=== PATIENT | male | born 1960 | race Caucasian/White ===

== ENCOUNTER 2023-09-25 06:30 | Day surgery (SDC) | payer OTHER, SELFPAY ==
[2023-08-08 08:59] VITALS: BMI 22.5
[2023-08-08 09:22] LABS: % Basophils 0.5 % (0-2); % Eosinophils 2.8 % (0-6); % Immature Granulocytes 0.2 % (0-0.5); % Lymphocytes 32.2 % (20.5-51.1); % Monocytes 10.8 % (1.7-9.3); % Neutrophils 53.5 % (42.2-75.2); Absolute Eosinophils 0.1 10^3/uL (0-0.7); Absolute Lymphocytes 1.4 10^3/uL (1.2-3.4); Absolute Monocytes 0.5 10^3/uL (0.1-0.6); Absolute Neutrophils 2.3 10^3/uL (1.4-6.5); Hematocrit 40.4 % (39.0-52.0); Hemoglobin 13.7 g/dL (13.0-18.0); Mean Corp Hgb Conc. 33.9 g/dL (33.0-37.0); Mean Corpuscular Hgb 29.5 pg (27.0-31.0); Mean Corpuscular Volume 86.9 fL (80.0-94.0); Mean Platelet Volume 10.2 fL (7.4-10.4); Nucleated Red Blood Cells % 0 % (-); Platelet Count 217 10^3/uL (130-400); Red Blood Cell Count 4.65 10^6/uL (4.70-6.10); Red Cell Dist. Width 12.5 % (11.5-14.5); White Blood Cell Count 4.4 10^3/uL (4.8-10.8)
[2023-08-08 09:35] LABS: INR 1.55; PT 18.8 Sec (11.4-14.6)
[2023-08-08 09:37] LABS: ALT (SGPT) 33 U/L (0-50); AST (SGOT) 33 U/L (17-59); Albumin 4.5 g/dl (3.5-5.0); Alkaline Phosphatase 57 U/L (38-126); Blood Urea Nitrogen 18 mg/dl (9-20); Carbon Dioxide 29 mmol/L (22-30); Chloride 106 mmol/L (98-107); Estimated Creatinine Clearance 90 ml/min; Glucose 95 mg/dl (70-99); Magnesium 2.1 mg/dl (1.6-2.3); Potassium 4.6 mmol/L (3.5-5.1); Sodium 138 mmol/L (135-145); Total Protein 6.9 g/dl (6.3-8.2); eGFR > 60.00
[2023-09-22 09:54] VITALS: BMI 21.1
[2023-09-22 10:13] LABS: % Basophils 0.8 % (0-2); % Eosinophils 2.5 % (0-6); % Immature Granulocytes 0.3 % (0-0.5); % Lymphocytes 34.3 % (20.5-51.1); % Monocytes 11.7 % (1.7-9.3); % Neutrophils 50.4 % (42.2-75.2); Absolute Eosinophils 0.1 10^3/uL (0-0.7); Absolute Lymphocytes 1.4 10^3/uL (1.2-3.4); Absolute Monocytes 0.5 10^3/uL (0.1-0.6); Hemoglobin 14.1 g/dL (13.0-18.0); Mean Corp Hgb Conc. 33.6 g/dL (33.0-37.0); Mean Corpuscular Hgb 29.4 pg (27.0-31.0); Mean Corpuscular Volume 87.7 fL (80.0-94.0); Mean Platelet Volume 10.5 fL (7.4-10.4); Nucleated Red Blood Cells % 0 % (-); Platelet Count 186 10^3/uL (130-400); Red Blood Cell Count 4.79 10^6/uL (4.70-6.10); White Blood Cell Count 3.9 10^3/uL (4.8-10.8)
[2023-09-22 10:24] LABS: ALT (SGPT) 30 U/L (0-50); AST (SGOT) 36 U/L (17-59); Albumin 4.4 g/dl (3.5-5.0); Alkaline Phosphatase 56 U/L (38-126); Blood Urea Nitrogen 17 mg/dl (9-20); Calcium 9.2 mg/dl (8.4-10.2); Carbon Dioxide 31 mmol/L (22-30); Chloride 104 mmol/L (98-107); Estimated Creatinine Clearance 79 ml/min; Glucose 102 mg/dl (70-99); Sodium 138 mmol/L (135-145); Total Bilirubin 1.1 mg/dl (0.2-1.3); eGFR > 60.00
[2023-09-22 10:31] LABS: INR 1.07; PT 13.7 Sec (11.4-14.6)
[2023-09-22 10:41] LABS: Potassium 4.6 mmol/L (3.5-5.1)
[2023-09-25] VITALS (10 sets, daily range): BP systolic 98–113; BP diastolic 52–76; BMI 22.2
[2023-09-25 07:07] LABS: Hematocrit 40.5 % (39.0-52.0); Hemoglobin 13.9 g/dL (13.0-18.0); Mean Corp Hgb Conc. 34.3 g/dL (33.0-37.0); Mean Corpuscular Hgb 29.8 pg (27.0-31.0); Mean Corpuscular Volume 86.7 fL (80.0-94.0); Mean Platelet Volume 10.2 fL (7.4-10.4); Platelet Count 159 10^3/uL (130-400); Red Blood Cell Count 4.67 10^6/uL (4.70-6.10); Red Cell Dist. Width 12.9 % (11.5-14.5); White Blood Cell Count 4.1 10^3/uL (4.8-10.8)
[2023-09-25 07:24] LABS: Blood Urea Nitrogen 20 mg/dl (9-20); Carbon Dioxide 26 mmol/L (22-30); Chloride 106 mmol/L (98-107); Estimated Creatinine Clearance 101 ml/min; Glucose 103 mg/dl (70-99); Potassium 4.2 mmol/L (3.5-5.1); Sodium 137 mmol/L (135-145); eGFR > 60.00
[2023-09-25 09:26] LABS: ACT-LR - POC 279 Seconds (116-155)
[2023-09-25 09:47] LABS: ACT-LR - POC 343 Seconds (116-155)
[2023-09-25 10:10] LABS: ACT-LR - POC 340 Seconds (116-155)
[2023-09-25 10:26] LABS: ACT-LR - POC 292 Seconds (116-155)
[2023-09-25 13:19] LABS: ACT-LR - POC > 397 Seconds (116-155)
--- NOTE | 2023-09-25 14:31 | ITS.CL.ABL ---
Early Childhood Worker - Ablation
Ablation
Procedure Report:
ELECTROPHYSIOLOGIC STUDY AND POSSIBLE ABLATION
DATE: September 25, 2023
Primary Care Provider: Dr. Leticia Lebron
INDICATION:
Symptomatic Atrial Fibrillation.
Paroxysmal
HISTORY: See H and P.
Symptomatic AF, poorly controlled with attempted medical therapy
He has a complex past medical history which mitral valve repair with a #36 annuloplasty ring on August 20, 2012 for severe mitral regurgitation and left ventricular dysfunction.
Course was complicated by recurrent atrial tachyarrhythmias. He was discharged to home on amiodarone and oral anticoagulation. He demonstrated symptomatic recurrent persistent atrial flutter for which he underwent EP study and ablation of typical
right atrial flutter on November 30, 2012. Amiodarone was discontinued and he had done well for many years from an arrhythmia standpoint. Regarding his post mitral valve repair mitral regurgitation, postoperative echocardiograms have demonstrated mitral
valve prolapse with moderate to severe mitral regurgitation. He subsequently had a consultative visit with Dr. Jacobo at the [facility] December 30, 2013 and it was felt that given the lack of patient's symptoms and sinus rhythm with a
normalized left ventricular function that the best course would be observational follow-up with consideration for re-op only if symptoms develop or heart failure develops. Most recently, required elective electrical cardioversion July 31, 2023 for
symptomatic AF.���Since that time, he has noted several recurrences of paroxysmal atrial fibrillation both symptomatically and on his wearable device, watch.
HAS-BLED: 0
CHADSVASc: 0
Through informed decision making process in the office is decided to stay on direct oral anticoagulant at least for now.
PRESENTING RHYTHM:SR
HISTORY: See H and P.
Symptomatic AF, poorly controlled with attempted medical therapy.
ANTICOAGULATION: Xarelto
'TIME-OUT': called and confirmed.
SEDATION/ANESTHESIA: provided via the anesthesia department using general anesthesia.
PROCEDURE:
Ultrasound Guidance performed by ct was utilized for femoral venous Vascular Access b/l.
A decapolar CS catheter was placed within the CS for mapping and pacing.
The intracardiac ultrasound catheter was positioned in the RA for continuous intracardiac ultrasound imaging.
Heparin bolus and infusion to target ACT at 300 -350 seconds was administered. Transseptal puncture was performed. This entailed advancing a sheath with dilator into the superior vena cava and withdrawing both (monitoring intracardiac ultrasound,
fluoroscopy and tip pressure) with the tip oriented toward the atrial septum. The fossa ovalis was engaged (indicated by sudden displacement of the sheath tip as well as tenting of the fossa seen on intracardiac ultrasound). Left atrial access
required a pass with the Brockenbrough needle extended. Left atrial catheter position was confirmed by pressure monitoring as well as fluoroscopy. The sheath was advanced over the dilator and positioned in the left atrium.
The multipolar mapping catheter was initially positioned through the transseptal sheath for high density mapping.
Geometry and voltage mapping was performed using the BioDatomicstronic Pulse Select PFA catheter and Navex 3-D electroanatomical mapping.
A 3-D map was created using Navex . A 3-D reconstructed CT image was compared to the 3-D Navex map to assist in anatomic evaluation, mapping and ablation.
The medtronic Pulse Select PFA catheter and system was used for cardiac ablation. Catheter positioning was guided and confirmed using both I.C.E. and fluoroscopy.
PV isolation approach was used to electrically isolate each PV ostia.
First, all PVPs were targeted at each vein. All PVPs were eliminated at each vein demonstrating entrance block. Also pacing from the multipolar mapping catheter around the the circumference of the ostia was performed at 10 ma and 2.0 msec output
to assess for exit block.
Additional lesions were placed at areas of conduction escape until full isolation (entrance and exit) was achieved. This performed at each vein ostia.
Mapping with the multipolar mapping catheter Garcia Grid was repeated at each PV ostia to assess for any 're connect', while the ostia are all successfully ablated with entrance and exit block there is additional antral signal at the bakari between
the left superior and left inferior pulmonary vein which required an additional ablation set with pulsed electric field ablation. At the end of ablation programmed electrical stimulation failed to induce any arrhythmias and complete entrance and
exit block is demonstrated at each pulmonary vein set in wide area circumferential fashion (left superior, left inferior, right superior, right inferior ).
I.C.E. :
Pre-Ablation Post-Ablation
LVEF: 55 % 55 %
WMA: none none
Pericardial effusion: none none
COMPLICATIONS:
None
SUMMARY:
- Mapping and ablation to isolate the PVs
- Additional AF ablation set after PVI. \\
- 3-D Electroanatomical Mapping
- Intracardiac Ultrasound
Post ablation, I discussed today's findings and results with the patient's son via telephone call.
RECOMMENDATIONS:
- Observe in monitored bed.
- Maintain oral anticoagulation.
- Office visit with me in 3 months.
Copy to: Dr. Leticia Lebron
== END 2023-09-25 15:52 | disposition home or self-care (01) ==
LOC: CATH 06:30
PROVIDERS: ATTENDING PHYSICIAN Internal Medicine Cardiovascular Disease; FAMILY PHYSICIAN Family Medicine
DX: I48.91 Unspecified atrial fibrillation (principal); Z79.01 Long term (current) use of anticoagulants; I50.9 Heart failure, unspecified; I34.0 Nonrheumatic mitral (valve) insufficiency; I48.92 Unspecified atrial flutter
CPT/HCPCS: C1732; C1894; C1769; C1730; C1892; C1759; 36415; 75572; 76937; 80048; 80053; 83735; 85025; 85027; 85347; 85610; 86850; 86900; 86901; 93005; 93656; 93657; Q9967

== ENCOUNTER 2024-07-29 08:54 | Inpatient (IN) | payer OTHER, SELFPAY ==
[2024-07-29 09:22] VITALS: BP 96/68
[2024-07-29 09:28] VITALS: BMI 22.8
[2024-07-29] MEDS: TOPROL XL PO (09:28)
[2024-07-29 10:06] LABS: Hemoglobin 13.4 g/dL (13.0-18.0); Mean Corp Hgb Conc. 34.4 g/dL (33.0-37.0); Mean Corpuscular Hgb 29.8 pg (27.0-31.0); Mean Corpuscular Volume 86.9 fL (80.0-94.0); Mean Platelet Volume 10.5 fL (7.4-10.4); Platelet Count 177 10^3/uL (130-400); Red Blood Cell Count 4.49 10^6/uL (4.70-6.10); Red Cell Dist. Width 12.5 % (11.5-14.5); White Blood Cell Count 4.8 10^3/uL (4.8-10.8)
[2024-07-29 10:17] LABS: ALT (SGPT) 31 U/L (0-50); AST (SGOT) 31 U/L (17-59); Albumin 4.4 g/dl (3.5-5.0); Alkaline Phosphatase 50 U/L (38-126); Blood Urea Nitrogen 25 mg/dl (9-20); Calcium 9.2 mg/dl (8.4-10.2); Carbon Dioxide 22 mmol/L (22-30); Chloride 104 mmol/L (98-107); Estimated Creatinine Clearance 90 ml/min; Glucose 119 mg/dl (70-99); Magnesium 1.9 mg/dl (1.6-2.3); Potassium 4.4 mmol/L (3.5-5.1); Sodium 135 mmol/L (135-145); Total Bilirubin 1.1 mg/dl (0.2-1.3); Total Protein 6.6 g/dl (6.3-8.2); eGFR > 60.00
--- NOTE | 2024-07-29 10:49 | W.CARD.TIKOS ---
Initiate Tikosyn
-
I verify that the patient has not taken any verapamil (Isoptin/Calan), ketoconazole (Nizoral), cimetidine (Tagamet), trimethoprim (Trimpex), trimethoprim/sulfamethoxazole (Bactrim), megesterol (Megace), prochlorperazine (Compazine),
hydrochlorothiazide (HCTZ), dolutegravir (Tivicay) or any Class I or Class III anti-arrhythmic within the last three days
AND
I verify that the patient has not taken amiodarone within the last THREE months, or that the patient's amiodarone plasma concentration is <0.3 mcg/mL.
Creatinine 0.8 mg/dL (0.7-1.3) 07/29/24 09:45
Estimated Creat Clear 90 ml/min 07/29/24 09:45
CrCl 89 calculated by me using age 64, wt 149 lbs and Cre 0.8.
Does patient have a Ventricular Conduction Abnormality: No
I have assessed the baseline QTc interval (using QT for heart rate less than 60 bpm) and deemed the patient is appropriate for Dofetilide therapy. I understand that Tikosyn is contraindicated if the QTc is >440msec (500msec in patients with
ventricular conduction abnormalities).
Baseline QTc (in msec): 428
Ordering Physician: Bret Alcala
--- NOTE | 2024-07-29 10:50 | W.PN.CARDCBS ---
Addendum entered and electronically signed by Heath Antonio DO 07/29/24 14:01:
I saw and examined the patient.
The Data Analytics Developer's note was reviewed and I agree with the note.
Comment:
Plan:
Admit for Tikosyn load.
If fails to convert on his own, then cardioversion this monday.
Monitor QTc, currently stable.
Outpt follow up with Dr Vazquez
Discussed with at bedside.
Original Note:
Today's Communication / Plan
-
Start Tikosyn 500 mcg q 12 hours
CV Monday
50 min face to face and coordination of care
Impression / Plan
-
PCP: Dr. Eden
Cardiology: Dr. Bret Alcala
Impression:
Direct admission for Tikosyn loading
Paroxysmal typical and atypical atrial flutter and Afib
s/p PVI 09/25/23
Chronic Xarelto OAC
h/o mini MV Repair-36 mm ring 2012
Hyperlipidemia
Echo 02/20/2023: EF 55%, mild concentric LVH, status post MV repair with #36 annuloplasty ring and prolapse of the posterior mitral leaflet, moderate anterior eccentric MR with peak/mean 10/4 mmHg, compared to echo 07/2020 there was no significant
change
Plan:
-Patient was seen for routine visit in the cardiology office on 07/04/2024 and was feeling well but on EKG was found to be in atypical atrial flutter. The patient had previously had PVI on 09/25/2023 and this was his first documented arrhythmia
recurrence. The patient was given options of AAD and he was agreeable to Tikosyn loading. Patient was previously on amiodarone following A-fib/flutter after MV repair back in 2012, but this was stopped due to nausea and fatigue. There is no
history of QT prolongation.
-ECG reviewed by me shows atypical atrial flutter, QTc 428 ms
-CrCl calculated by me was 89 based on age 64, Cre 0.8, wt 149 lbs. Will start Tikosyn 500 mcg every 12 hours and follow-up ECG 2 hours after each dose
-Tikosyn loading reviewed with patient and sitting bedside in detail and all questions answered to their satisfaction
-No missed doses of Xarelto
-If patient fails to convert with Tikosyn loading then we will plan on CV on 07/31/2024
-Outpatient dose of Toprol XL 12.5 mg daily has been continued
Progress Note - Public Finance Specialist
Subjective
Date of Service: July 29, 2024
Feels well, no palpitations
Objective
Labs:
07/29/24 09:45
07/29/24 09:45
Labs
Hgb 13.4 g/dL (13.0-18.0) 07/29/24 09:45
Hct 39.0 % (39.0-52.0) 07/29/24 09:45
Plt Count 177 10^3/uL (130-400) 07/29/24 09:45
Sodium 135 mmol/L (135-145) 07/29/24 09:45
Potassium 4.4 mmol/L (3.5-5.1) 07/29/24 09:45
BUN 25 mg/dl (9-20) H 07/29/24 09:45
Creatinine 0.8 mg/dL (0.7-1.3) 07/29/24 09:45
Glucose 119 mg/dl (70-99) H 07/29/24 09:45
Vital Signs and I&O:
Vital Signs
Temp Resp Pulse Ox
97.7 F 18 99
07/29/24 09:21 07/29/24 09:21 07/29/24 09:21
Vital Signs
Temp Resp Pulse Ox
97.7 F 18 99
07/29/24 09:21 07/29/24 09:21 07/29/24 09:21
Physical Exam
Physical Exam
GEN: AAOx3
HEENT: MMM
LUNGS: RA. No audible wheeze
CV: Atypical atrial flutter on tele, irreg irreg
ABD: ND
EXT: No ed B/[place]
NEURO: Gross non-focal
SKIN: No rash
[2024-07-29] MEDS: TIKOSYN 500 MCG PO ×2 (11:09→22:23)
--- NOTE | 2024-07-29 11:42 | CM ---
Chart reviewed. Patient is independent of ADLS, lives with his in a [address], 1 [address], 0 DME. CM to follow
--- NOTE | 2024-07-29 11:43 | CM ---
Pricing on Dofetilide through the patient's PP is $10 for a 30 day supply. Patient will need prior authorization. Notified Dana GRAY. Patient will need confirmation at pharmacy of medication on discharge. Patient to go home with 3 day
supply as well.
[2024-07-29 11:53] VITALS: BP 106/69
--- NOTE | 2024-07-29 11:55 | PTCARENOTE ---
Pt admitted to room 2250 for Tikosyn load. Oriented pt to room. Tele - Afib 80-100s. Pt able to ambulate independently w/ steady gait. Assessment completed as documented. See worklist. No complaints at this time. Call mireille w/in reach.
--- NOTE | 2024-07-29 13:06 | PTCARENOTE ---
EKG obtained. Pt converted to SR w/ 1st deg block. QTC 495. WMarlyn Turnre made aware.
[2024-07-29 16:01] VITALS: BP 104/73
[2024-07-29 19:39] VITALS: BP 104/69
[2024-07-29 22:54] VITALS: BP 103/64
[2024-07-30] VITALS (7 sets, daily range): BP systolic 95–110; BP diastolic 61–70; BMI 22.8
[2024-07-30 04:14] LABS: Hematocrit 37.4 % (39.0-52.0); Hemoglobin 12.5 g/dL (13.0-18.0); Mean Corp Hgb Conc. 33.4 g/dL (33.0-37.0); Mean Corpuscular Hgb 29.3 pg (27.0-31.0); Mean Corpuscular Volume 87.8 fL (80.0-94.0); Mean Platelet Volume 10.4 fL (7.4-10.4); Platelet Count 153 10^3/uL (130-400); Red Blood Cell Count 4.26 10^6/uL (4.70-6.10); Red Cell Dist. Width 12.7 % (11.5-14.5); White Blood Cell Count 4.1 10^3/uL (4.8-10.8)
[2024-07-30 04:40] LABS: Blood Urea Nitrogen 21 mg/dl (9-20); Calcium 8.6 mg/dl (8.4-10.2); Carbon Dioxide 27 mmol/L (22-30); Chloride 103 mmol/L (98-107); Estimated Creatinine Clearance 90 ml/min; Glucose 96 mg/dl (70-99); Potassium 4.1 mmol/L (3.5-5.1); Sodium 137 mmol/L (135-145); eGFR > 60.00
--- NOTE | 2024-07-30 06:40 | PTCARENOTE ---
Pt NSR with 1st deg HB. Pt denies any pain, SOB. 2nd dose Tikosyn given. EKG obtained.
[2024-07-30] MEDS: TOPROL XL 12.5 MG PO (09:05)
--- NOTE | 2024-07-30 09:16 | W.PN.CARDCBS ---
Addendum entered and electronically signed by Heath Antonio DO 07/30/24 12:41:
I saw and examined the patient.
The Funeral Pre Arrangement Specialist's note was reviewed and I agree with the note.
Comment:
Plan:
Remains in sinus after spontaneous conversion to sinus
Cont Tikosyn
QTc stable.
d/c after 5 th dose tomorrow if remains stable.
Original Note:
Today's Communication / Plan
-
Remains in SR following spontaneous conversion with 1st dose of Tikosyn
QTc stable
5th dose scheduled for Monday and if stable can be d/c'd
Impression / Plan
-
PCP: Dr. Eden
Cardiology: Dr. Bret Alcala
Impression:
Direct admission for Tikosyn loading
Paroxysmal typical and atypical atrial flutter and Afib
s/p PVI 09/25/23
Chronic Xarelto OAC
h/o mini MV Repair-36 mm ring 2012
Hyperlipidemia
Echo 02/20/2023: EF 55%, mild concentric LVH, status post MV repair with #36 annuloplasty ring and prolapse of the posterior mitral leaflet, moderate anterior eccentric MR with peak/mean 10/4 mmHg, compared to echo 07/2020 there was no significant
change
Plan:
-Patient spontaneously converted to SR after first dose of Tikosyn 500 mcg that was given Monday.
-QTc 486 ms on recheck ECG 07/30/24 AM, ordered and reviewed by me. Will cont with Tikosyn 500 mcg q 12 hours. 5th dose scheduled for Monday.
-Appreciate help of CM on checking cost of Tikosyn, $10/30 day supply. Prior auth completed by [facility] office.
-No missed doses of Xarelto
-Outpatient dose of Toprol XL 12.5 mg daily has been continued
HPI: Patient was seen for routine visit in the cardiology office on 07/04/2024 and was feeling well but on EKG was found to be in atypical atrial flutter. The patient had previously had PVI on 09/25/2023 and this was his first documented arrhythmia
recurrence. The patient was given options of AAD and he was agreeable to Tikosyn loading. Patient was previously on amiodarone following A-fib/flutter after MV repair back in 2012, but this was stopped due to nausea and fatigue. There is no
history of QT prolongation.
Progress Note - Sales Development Manager
Subjective
Date of Service: July 30, 2024
He feels well, no palpitations, he feels no different being in SR
Objective
Labs:
07/30/24 03:44
07/30/24 03:44
Labs
Hgb 12.5 g/dL (13.0-18.0) L 07/30/24 03:44
Hct 37.4 % (39.0-52.0) L 07/30/24 03:44
Plt Count 153 10^3/uL (130-400) 07/30/24 03:44
Sodium 137 mmol/L (135-145) 07/30/24 03:44
Potassium 4.1 mmol/L (3.5-5.1) 07/30/24 03:44
BUN 21 mg/dl (9-20) H 07/30/24 03:44
Creatinine 0.8 mg/dL (0.7-1.3) 07/30/24 03:44
Glucose 96 mg/dl (70-99) 07/30/24 03:44
Vital Signs and I&O:
Vital Signs
Temp Pulse Resp BP Pulse Ox
97.6 F 59 14 102/70 97
07/30/24 07:11 07/30/24 03:30 07/30/24 07:11 07/30/24 03:18 07/30/24 07:11
Vital Signs
Temp Pulse Resp BP Pulse Ox
97.6 F 59 14 102/70 97
07/30/24 07:11 07/30/24 03:30 07/30/24 07:11 07/30/24 03:18 07/30/24 07:11
Intake & Output
07/28/24 07/29/24 07/30/24 07/31/24
06:59 06:59 06:59 06:59
Intake Total 1080 / 1080 200 / 200
Balance 1080 / 1080 200 / 200
Physical Exam
Physical Exam
GEN: AAOx3
HEENT: MMM
LUNGS: RA. No audible wheeze
CV: SR on tele
ABD: ND
EXT: No edema B/L
NEURO: Gross non-focal
SKIN: No rash
[2024-07-30] MEDS: MAGNESIUM OXIDE 500 MG PO (09:44)
[2024-07-30] MEDS: TIKOSYN 500 MCG PO ×2 (09:44→20:24)
[2024-07-30] MEDS: XARELTO 20 MG PO (10:44)
--- NOTE | 2024-07-30 11:04 | CM ---
Chart reviewed. Patient is independent of ADLS, lives in a [address], [address], 0 DME. Patient is in a NSR. Follow up on Dofetilide dosing prior to discharge. Patient will need a 3 day supply at discharge. CM to follow
[2024-07-31 04:07] VITALS: BP 98/60
[2024-07-31 05:08] LABS: Blood Urea Nitrogen 22 mg/dl (9-20); Calcium 8.4 mg/dl (8.4-10.2); Carbon Dioxide 27 mmol/L (22-30); Chloride 103 mmol/L (98-107); Estimated Creatinine Clearance 90 ml/min; Glucose 95 mg/dl (70-99); Potassium 4.3 mmol/L (3.5-5.1); Sodium 137 mmol/L (135-145); eGFR > 60.00
[2024-07-31 05:37] VITALS: BMI 22.9
[2024-07-31 07:38] VITALS: BP 102/71
[2024-07-31] MEDS: TOPROL XL 12.5 MG PO (08:32)
[2024-07-31] MEDS: CRESTOR 5 MG PO (08:33)
[2024-07-31] MEDS: XARELTO 20 MG PO (08:33)
[2024-07-31] MEDS: MAGNESIUM OXIDE 500 MG PO (08:33)
[2024-07-31] MEDS: TIKOSYN 500 MCG PO (08:33)
--- NOTE | 2024-07-31 09:32 | PTCARENOTE ---
Patient's RN Mercedes said patient has been in NSR for days. Dr. Eddy aware and Cardioversion cancelled.
--- NOTE | 2024-07-31 09:32 | W.PN.CARDCBS ---
Addendum entered and electronically signed by Dana Turner PA-C 08/01/24 09:35:
Patient has a PMH of acute HFpEF in the setting of severe MR leading up to eventual MVR. Patient does not have chronic HF and does not take a daily diuretic.
Addendum entered and electronically signed by Shahram Ellis MD 07/31/24 11:46:
I saw and examined the patient.
The Ip Litigation Associate's note was reviewed and I agree with the note.
Comment:
GEN: No distress, awake, Ox3
HEENT: supple, anicteric, mmm
LUNGS: CTA, no wheezes/rales
CV: Reg, S1/S2, 1/6 syst LSB, no gallop
ABD: soft, BS+, NT/ND
EXT: No edema
NEURO: Gross non-focal
SKIN: No rash
Plan:
Back in sinus rhythm. QTc approximately 500 to 510 ms. Plan will be to decrease Tikosyn to 250 mcg twice daily and for likely discharge today.
Original Note:
Today's Communication / Plan
-
QTc 506 two hours after 5th dose of Tikosyn this AM, will review with EP
Likely d/c to home later today
Impression / Plan
-
PCP: Dr. Eden
Cardiology: Dr. Bret Alcala
Impression:
Direct admission for Tikosyn loading
Paroxysmal typical and atypical atrial flutter and Afib
s/p PVI 09/25/23
Chronic Xarelto OAC
h/o mini MV Repair-36 mm ring 2012
Hyperlipidemia
Echo 02/20/2023: EF 55%, mild concentric LVH, status post MV repair with #36 annuloplasty ring and prolapse of the posterior mitral leaflet, moderate anterior eccentric MR with peak/mean 10/4 mmHg, compared to echo 07/2020 there was no significant
change
Plan:
-Patient spontaneously converted to SR after first dose of Tikosyn 500 mcg that was given Monday.
-QTc 506 two hours after 5th dose of Tikosyn Monday. Will review with EP. Patient has otherwise tolerated Tikosyn 500 mcg q 12 hour dosing.
-Appreciate help of CM on checking cost of Tikosyn, $10/30 day supply. Prior auth completed by [facility] office.
-No missed doses of Xarelto
-Outpatient dose of Toprol XL 12.5 mg daily has been continued
-Likely d/c to home 07/31/24 pending QTc review with EP
HPI: Patient was seen for routine visit in the cardiology office on 07/04/2024 and was feeling well but on EKG was found to be in atypical atrial flutter. The patient had previously had PVI on 09/25/2023 and this was his first documented arrhythmia
recurrence. The patient was given options of AAD and he was agreeable to Tikosyn loading. Patient was previously on amiodarone following A-fib/flutter after MV repair back in 2012, but this was stopped due to nausea and fatigue. There is no
history of QT prolongation.
Progress Note - Vp Publisher Development
Subjective
Date of Service: July 31, 2024
Feels well and wants to go home today. No palpitations
Objective
Labs:
07/30/24 03:44
07/31/24 04:13
Labs
Hgb 12.5 g/dL (13.0-18.0) L 07/30/24 03:44
Hct 37.4 % (39.0-52.0) L 07/30/24 03:44
Plt Count 153 10^3/uL (130-400) 07/30/24 03:44
Sodium 137 mmol/L (135-145) 07/31/24 04:13
Potassium 4.3 mmol/L (3.5-5.1) 07/31/24 04:13
BUN 22 mg/dl (9-20) H 07/31/24 04:13
Creatinine 0.8 mg/dL (0.7-1.3) 07/31/24 04:13
Glucose 95 mg/dl (70-99) 07/31/24 04:13
Vital Signs and I&O:
Vital Signs
Temp Pulse Resp BP Pulse Ox
97.6 F 61 20 102/61 97
07/31/24 07:34 07/31/24 08:32 07/31/24 07:34 07/31/24 08:32 07/31/24 07:34
Vital Signs
Temp Pulse Resp BP Pulse Ox
97.6 F 61 20 102/61 97
07/31/24 07:34 07/31/24 08:32 07/31/24 07:34 07/31/24 08:32 07/31/24 07:34
Intake & Output
07/29/24 07/30/24 07/31/24 08/01/24
06:59 06:59 06:59 06:59
Intake Total 1080 / 1080 200 / 200
Balance 1080 / 1080 200 / 200
Physical Exam
Physical Exam
GEN: AAOx3
HEENT: MMM
LUNGS: RA. No audible wheeze
CV: SR on tele
ABD: ND
EXT: No edema B/L
NEURO: Gross non-focal
SKIN: No rash
--- NOTE | 2024-07-31 09:35 | CM ---
Confirmed with patient's [facility] and Dofetilide is in stock, 500 mcq 60 tablets.
--- NOTE | 2024-07-31 11:19 | CM ---
Chart reviewed. Patient is independent of ADLS, lives with his in a [address], [address], 0 DME. Patient has his 3 day stock of dofetilide to go home and is also in stock at his [facility]. Plan is for the patient to return home.
--- NOTE | 2024-07-31 11:45 | PN.CDI ---
CDI
- -
CDI:
Physician Documentation Request
Admit Date: 07/29/24 08:54
Dear Dana Turner,
H&P OV note from 07/04/24 contains a past medical history of congestive heart failure.
Echo 02/20/23 concludes and EF 55%
Please provide further specificity regarding the most likely type of CHF.
Type
Systolic
Diastolic
Combined Systolic/Diastolic
Other
Use of terms such as suspected, likely, concern for, or probable (associated with a specific diagnosis that is being evaluated, monitored, or treated as if it exists) are acceptable and can be coded in the inpatient setting, when documented at the
time of discharge.
Thank you,
Makenna May RN, BSN
CDI Specialist
tiger text
Please use your independent medical judgment in providing your response.
[2024-07-31 12:00] VITALS: BP 109/66
== END 2024-07-31 13:37 | disposition home or self-care (01) | DRG 310 ==
LOC: IVU 08:54
PROVIDERS: Physician Assistant Medical; ADMITTING PHYSICIAN Internal Medicine Cardiovascular Disease; FAMILY PHYSICIAN Family Medicine
DX: I48.0 Paroxysmal atrial fibrillation (principal); I48.4 Atypical atrial flutter; I48.3 Typical atrial flutter; Z79.01 Long term (current) use of anticoagulants; E78.5 Hyperlipidemia, unspecified
CPT/HCPCS: 80048; 80053; 83735; 85027; 93005

== ENCOUNTER → 2024-11-20 10:11 | Outpatient (REF) | payer OTHER, SELFPAY | LOC: RCS 10:11 | PROVIDERS: ATTENDING PHYSICIAN Nurse Practitioner; FAMILY PHYSICIAN Family Medicine | DX: I48.91 Unspecified atrial fibrillation (principal); Z98.890 Other specified postprocedural states | CPT/HCPCS: 93306 ==